=== PATIENT | male | born 1995 | race Caucasian/White ===

== ENCOUNTER 2017-07-05 22:23 | Emergency (ER) | payer SELFPAY ==
[~2017-07-05] VITALS: Ht 175.3 cm; Wt 75.0 kg
[~2017-07-05 22:23] MED LIST: BENZ1LOZ52 MM; CETI10CA PO; D-ME118S6 PO; FLUT9.9S NASAL; SODI75SP NASAL
[2017-07-05 22:36] VITALS: Ht 175.3 cm; Wt 75.0 kg
[2017-07-06] MEDS ORDERED: ONDANSETRON (ODT) 4 MG TAB ODT STA (00:03)
[2017-07-06] MEDS ORDERED: CETI10CA PO (00:23)
[2017-07-06] MEDS ORDERED: OSLT75C PO (00:23)
[2017-07-06] MEDS ORDERED: GUAI120S26 PO (00:23)
[2017-07-06] MEDS ORDERED: IBUP-1542 PO (00:23)
[2017-07-06] MEDS ORDERED: ACET500C5 PO (00:23)
[2017-07-06] MEDS ORDERED: ACETAMINOPHEN 325 MG TAB PO ONE (00:30)
[2017-07-06] MEDS ORDERED: IBUPROFEN 600 MG TAB PO ONE (00:30)
[2017-07-06 00:44] VITALS: BP 118/74; PULSE 111; RESP 16; TEMP 100
--- NOTE | 2017-07-06 01:02 | ERD ---
ER Documentation Chief Complaint Chief Complaint Fever, body ache, muscle weakness x 1 day HPI 22-year-old male presents here to emergency department for complaints of fever body aches muscle aches that started today. Patient also has vomiting episodes , and diarrhea. Patient does not have any blood in stool or black stool. Patient without any sick contacts. Patient did not take any medications to help with symptoms. Patient also has been on dry cough, does not cough up any phlegm or blood. Patient does not have any shortness of breath or wheezing ROS All systems reviewed and are negative except as per history of present illness. Medications Home Meds Active Scripts Cetirizine Hcl* (Zyrtec*) 10 Mg Capsule, 10 MG PO DAILY, #30 TAB.CHEW Prov:MIRTHA SEWELL NP 07/06/17 Abdshjtxnfk-S-Zalmrcqhhj Hb* (Guaifenesin* DM Syrup) 120 Ml Syrup, 10 ML PO Q4H Y for COUGH, #120 ML Prov:MIRTHA SEWELL NP 07/06/17 Oseltamivir Phosphate* (Tamiflu*) 75 Mg Capsule, 75 MG PO BID for 5 Days, CAP Prov:MIRTHA SEWELL NP 07/06/17 Acetaminophen* (Tylophen*) 500 Mg Capsule, 1 CAP PO Q6H Y for PAIN AND OR ELEVATED TEMP, #20 CAP Prov:MIRTHA SEWELL NP 07/06/17 Ibuprofen* (Motrin*) 600 Mg Tab, 600 MG PO Q6H Y for PAIN AND OR ELEVATED TEMP, #30 TAB Prov:MIRTHA SEWELL NP 07/06/17 Benzocaine/Menthol* (Cepacol* Sore Throat Lozenges) 1 Each Lozenge, 1 EACH MM q2h Y for SORE THROAT for 14 Days, LOZENGE Prov:FRANCK ROSENBAUM NP 11/07/15 Cetirizine Hcl* (Zyrtec*) 10 Mg Capsule, 10 MG PO DAILY, #10 TAB.CHEW Prov:FRANCK ROSENBAUM NP 11/07/15 Sodium Chloride/Sod Bicarb (Nasa Mist Saline [place]) 75 Ml [place], 2 SPRAYS NASAL BID, #1 BOTTLE Prov:FRANCK ROSENBAUM NP 11/07/15 Dextromethorphan Hb-Promethazine Hcl (Promethazine DM Syrup) 180 Ml Syrup, 10 ML PO Q6 Y for COUGH for 14 Days, ML Prov:FRANCK ROSENBAUM Crista. BLOOD BANK MANAGER 11/07/15 Fluticasone Propionate (Flonase Allergy Relief) 9.9 Ml [place].susp, 1 SPRAY NASAL BID, #1 BOTTLE TO EACH NOSTRIL Prov:FRANCK ROSENBAUM I. BLOOD BANK MANAGER 11/07/15 Allergies Allergies: Coded Allergies: No Known Allergy (Unverified , 07/05/17) PMhx/Soc Medical and Surgical Hx: pt denies Medical Hx, pt denies Surgical Hx History of Surgery: No Anesthesia Reaction: No Hx Neurological Disorder: No Hx Respiratory Disorders: No Hx Cardiac Disorders: No Hx Psychiatric Problems: No Hx Miscellaneous Medical Probl: No Hx Alcohol Use: No Hx Substance Use: No Hx Tobacco Use: No Smoking Status: Never smoker FmHx Family History: No coronary disease, No diabetes, No other Physical Exam Vitals Vital Signs Date Time Temp Pulse Resp B/P Pulse Ox O2 Delivery O2 Flow Rate FiO2 07/06/17 00:44 100.0 111 16 118/74 98 Room Air 07/05/17 22:36 101.2 130 20 122/62 97 Physical Exam GENERAL: The patient is well developed and appropriate for usual state of health, in no apparent distress. CHEST: Clear to auscultation bilaterally. There are no rales, wheezes or rhonchi. HEART: Regular rate and rhythm. No murmurs, clicks, rubs or gallops. No S3 or S4. ABDOMEN: Soft, nontender and nondistended. Good bowel sounds. No rebound or guarding. No gross peritonitis. No gross organomegaly or masses. No Camara sign or McBurney point tenderness. BACK: No midline or flank tenderness. EXTREMITIES: Equal pulses bilaterally. There is no peripheral clubbing, cyanosis or edema. No focal swelling or erythema. Full range of motion. Grossly neurovascularly intact. NEURO: Alert and oriented. Cranial nerves 2-12 intact. Motor strength in all 4 extremities with 5/5 strength. Sensation grossly intact. Normal speech and gait. SKIN: There is no apparent rash or petechia. The skin is warm and dry. HEMATOLOGIC AND LYMPHATIC: There is no evidence of excessive bruising or lymphedema. No gross cervical, axillary, or inguinal lymphadenopathy. Results 24 hrs Current Medications Medications (Trade) Dose Ordered Sig/Cal Route PRN Reason Start Time Stop Time Status Last Admin Dose Admin Ibuprofen (Motrin) 600 mg ONCE ONCE PO 07/06/17 00:30 07/06/17 00:31 DC 07/06/17 00:25 Acetaminophen (Tylenol Tab) 650 mg ONCE ONCE PO 07/06/17 00:30 07/06/17 00:31 DC 07/06/17 00:25 Ondansetron HCl (Zofran Odt) 4 mg ONCE STAT ODT 07/06/17 00:03 07/06/17 00:04 DC 07/06/17 00:25 Patient was given medicines for fever control here in the emergency department. After treatment, patient temperature improved and lower. Patient appears well and is hemodynamically stable. Patient was given Zofran here in the emergency department. After treatment, patient was able to tolerate po fluids here in the emergency department without any vomiting. There is no signs and symptoms of dehydration. Procedures/MDM Medical decision making: Patient symptoms was likely is consistent with influenza, no symptoms of any abdominal emergencies, lungs are clear, no symptoms of any pneumonia, laboratory testing radiology exams not indicated at this time. Patient appears once hemodynamically stable. Prescription was given for Tamiflu, Zyrtec Guaifenasin DM Zyrtec ibuprofen Zofran, is advised to follow with primary care doctor in 2-3 days for reevaluation of symptoms. Patient was advised to return to emergency department for any worsening symptoms. Disposition: Home. Stable Departure Diagnosis: Primary Impression: Flu-like symptoms Condition: Stable Patient Instructions: Influenza (Adult) MIRTHA SEWELL NP Jul 06, 2017 01:02
== END 2017-07-06 00:47 | disposition home or self-care (01) ==
LOC: FTE 22:23
DX: R50.9 Fever, unspecified (principal); R53.1 Weakness; R11.10 Vomiting, unspecified; R19.7 Diarrhea, unspecified; R05 Cough; M79.1 Myalgia
CPT/HCPCS: 99283